=== PATIENT | female | born 1935 | race Caucasian/White ===

== ENCOUNTER 2017-07-04 23:59 | Emergency (ER) | payer OTHER ==
[2017-07-05 00:22] VITALS: BP 179/82; PULSE 85; TEMP 98.7; BMI 22.9
--- NOTE | 2017-07-05 01:00 | PDOC ---
History of Present Illness - General Chief Complaint: Psychiatric Stated Complaint: PANIC ATTACK Time Seen by Provider: 07/05/17 00:59 History Source: Patient, Family Exam Limitations: No Limitations - History of Present Illness Initial Comments: This is an 82 YOF with h/o anxiety, HTN, HLD, and hypothyroidism who presents for stated panic attack after witnessing her have a cardiopulmonary arrest at their home at about 10:30 pm tonight. The family explains that her was taken to [facility] ED and they do not know his current status. The patient herself has been crying, intermittently hyperventilating, anxious, and generally in distress since this happened. She denies any suicidal or homicidal ideation, and denies any injury. 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 Past History - Past Medical History Allergies/Adverse Reactions: Allergies Allergy/AdvReac Type Severity Reaction Status Date / Time No Known Allergies Allergy Verified 07/05/17 00:20 Home Medications: Ambulatory Orders Lorazepam [Ativan] 0.5 mg PO ONCE PRN #2 tablet MDD 2 07/05/17 - Suicide/Smoking/Psychosocial Hx Smoking History: Never smoked Have you smoked in the past 12 months: No Information on smoking cessation initiated: No Hx Alcohol Use: No Drug/Substance Use Hx: No *Physical Exam - Vital Signs Last Vital Signs Temp Pulse Resp BP Pulse Ox 98.7 F 85 14 179/82 98 07/05/17 00:20 07/05/17 00:20 07/05/17 00:20 07/05/17 00:20 07/05/17 00:20 *DC/Admit/Observation/Transfer Diagnosis at time of Disposition: Grief reaction - Discharge Dispostion Disposition: HOME Condition at time of disposition: Stable Admit: No - Prescriptions Prescriptions: Lorazepam [Ativan] 0.5 mg PO ONCE PRN #2 tablet MDD 2 PRN Reason: Anxiety - Referrals Referrals: Fareed Morales MD [Primary Care Provider] - - Patient Instructions Additional Instructions: You were seen in the ER for a grief reaction. We took your vital signs and you do have blood pressure that is on the high side, but you took blood pressure medication just prior to coming in to the ER. We offered you a small amount of medication for anxiety and you decided not to have any. We believe that you are safe to go home with your family tonight because you are nor having any abnormal thoughts, and you seem to have a very good support system. Please do follow up with your PCP in the next few days. Return to the ER for any new or worsening symptoms. - Post Discharge Activity
--- NOTE | 2017-07-05 01:23 | PDOC ---
Attending Attestation - Resident Resident Name: Lynda Hatch - ED Attending Attestation I have performed the following: I have examined & evaluated the patient, The case was reviewed & discussed with the resident, I agree w/resident's findings & plan, Exceptions are as noted - HPI HPI: 07/05/17 01:30 Pt had panic attack after observing her having a cardiac arrest. - Physicial Exam PE: 07/05/17 01:31 *Physical Exam General Appearance: Yes: Appropriately Dressed. No: Apparent Distress, Intoxicated HEENT: positive: EOMI, ROSALINE, Normal ENT Inspection, Normal Voice, TMs Normal, Pharynx Normal. negative: Pale Conjunctivae, Photophobia, Scleral Icterus (R), Scleral Icterus (L) Neck: positive: Trachea midline, Normal Thyroid, Supple. negative: Tender, Rigid, Carotid bruit, Stridor, Lymphadenopathy (R), Lymphadenopathy (L), Thyromegaly Respiratory/Chest: positive: Lungs Clear, Normal Breath Sounds. negative: Chest Tender, Respiratory Distress, Accessory Muscle Use, Labored Respiration, RES, Crackles, Rales, Rhonchi, Stridor, Wheezing, Dullness Cardiovascular: positive: Regular Rhythm, Regular Rate, S1, S2. negative: Edema , JVD, Murmur, Bradycardia, Tachycardia Vascular Pulses: Dorsalis-Pedis (R): 2+, Doralis-Pedis (L): 2+ Gastrointestinal/Abdominal: positive: Normal Bowel Sounds, Flat, Soft. negative : Tender, Organomegaly, Pulsatile Mass, Increased Bowel Sounds, Decreased BS, Distended, Guarding, Rebound, Hernia, Hepatomegaly, Spleenomegaly Lymphatic: negative: Adenopathy, Tenderness Musculoskeletal: positive: Normal Inspection. negative: CVA Tenderness, Decreased Range of Motion Extremity: positive: Normal Capillary Refill, Normal Inspection, Normal Range of Motion, Pelvis Stable. negative: Tender, Pedal Edema, Swelling, Erythema Integumentary: positive: Normal Color, Dry, Warm. negative: Cyanotic, Erythema , Jaundice, Rash Neurologic: positive: csr II-XII NML intact, Fully Oriented, Alert, Normal Mood/ Affect, Motor Strength 5/5. negative: EOM Palsy, Facial Droop, Sensory Deficit - Medical Decision Making 07/05/17 01:31 patient treated and released
== END 2017-07-05 01:53 | disposition home or self-care (01) ==
LOC: JER 23:59
DX: F43.29 Adjustment disorder with other symptoms (principal); I10 Essential (primary) hypertension; E11.9 Type 2 diabetes mellitus without complications; E03.9 Hypothyroidism, unspecified
CPT/HCPCS: 99281-25

== ENCOUNTER → 2020-10-06 | Day surgery (SDC) | payer OTHER | END | disposition home or self-care (01) | LOC: JRADIR 09:29 | PROVIDERS: ATTEND Internal Medicine Endocrinology, Diabetes & Metabolism | PROC: 0G9K3ZX Drainage of Thyroid Gland, Percutaneous Approach, Diagnostic (ICD-10-PCS; principal; 2020-10-06) | DX: E04.1 Nontoxic single thyroid nodule (principal) | CPT/HCPCS: 10005; 76942; 88173; 88305-TC ==

== ENCOUNTER → 2020-11-10 | Day surgery (SDC) | payer OTHER | END | disposition home or self-care (01) | LOC: JRADIR 09:31 | PROVIDERS: ATTEND Internal Medicine Endocrinology, Diabetes & Metabolism | PROC: 0G9H3ZX Drainage of Right Thyroid Gland Lobe, Percutaneous Approach, Diagnostic (ICD-10-PCS; principal; 2020-11-10) | PROC: BG44ZZZ Ultrasonography of Thyroid Gland (ICD-10-PCS; 2020-11-10) | DX: E04.1 Nontoxic single thyroid nodule (principal) | CPT/HCPCS: 10005; 76942; 88173; 88305-TC ==

== ENCOUNTER 2022-07-04 17:36 | Inpatient (IN) | payer OTHER ==
[2022-07-04 21:32] LABS: BASO % 0.5 % (0-2.0); HEMATOCRIT 33.6 % (32.4-45.2); HEMOGLOBIN 10.9 GM/dL (10.7-15.3); LYMPH % 13.8 % (8-40); MCH 28.3 pg (25.7-33.7); MCHC 32.5 g/dl (32.0-36.0); MEAN CELL VOLUME 86.9 fl (80-96); MEAN PLT VOLUME 9.4 fl (7.5-11.1); MONO % 4.6 % (3.8-10.2); NEUT % 81.1 % (42.8-82.8); PLATELET COUNT 205 10^3/uL (134-434); RBC 3.87 M/mm3 (3.60-5.2); RDW 13.9 % (11.6-15.6); WHITE BLOOD COUNT 8.3 K/mm3 (4.0-10.0)
[2022-07-04 21:59] LABS: CALCIUM 9.6 mg/dL (8.5-10.1)
[2022-07-04 22:00] LABS: ALBUMIN 4.1 g/dl (3.4-5.0); BLOOD UREA NITROGEN 62.3 mg/dL (7-18)
[2022-07-04 22:03] LABS: CREATININE 3.3 mg/dL (0.55-1.3)
[2022-07-04 22:04] LABS: BILIRUBIN,TOTAL 0.3 mg/dL (0.2-1); TOT PROT 7.7 g/dl (6.4-8.2)
[2022-07-04] MEDS ORDERED: SODIUM CHLORIDE 0.9% 500 ML INFUS.BAG IV ONE (22:47)
[2022-07-04] MEDS ORDERED: CALCIUM GLUC IN NACL, ISO-OSM 1 GM/50 ML BAG IVPB ONE ×2 (22:48→23:50)
[2022-07-05] MEDS ORDERED: SODIUM CHLORIDE 1,000 ML IV SCH (01:15)
[2022-07-05 01:36] LABS: ACTIVATED PTT 21.4 SECONDS (25.2-36.5)
[2022-07-05 01:54] LABS: INR 1.07 (0.83-1.09); PROTHROMBIN TIME (PATIENT) 12.3 SEC (9.7-13.0)
[2022-07-05] MEDS ORDERED: SODIUM ZIRCONIUM CYCLOSILICATE (LOKELMA) 5 GM PACKET PO ONE (04:00)
[2022-07-05] MEDS ORDERED: SODIUM ZIRCONIUM CYCLOSILICATE (LOKELMA) 5 GM PACKET ONE (04:28)
[2022-07-05 06:43] LABS: BASO % 0.6 % (0-2.0); EOS % 0.7 % (0-4.5); HEMOGLOBIN 10.1 GM/dL (10.7-15.3); MCH 28.3 pg (25.7-33.7); MCHC 32.4 g/dl (32.0-36.0); MEAN CELL VOLUME 87.3 fl (80-96); MEAN PLT VOLUME 9.6 fl (7.5-11.1); MONO % 7.1 % (3.8-10.2); NEUT % 70.6 % (42.8-82.8); PLATELET COUNT 166 10^3/uL (134-434); RBC 3.56 M/mm3 (3.60-5.2); RDW 13.6 % (11.6-15.6); WHITE BLOOD COUNT 6.3 K/mm3 (4.0-10.0)
[2022-07-05 06:58] LABS: CALCIUM 8.8 mg/dL (8.5-10.1)
[2022-07-05 06:59] LABS: ALBUMIN 3.3 g/dl (3.4-5.0); BLOOD UREA NITROGEN 52.5 mg/dL (7-18); MAGNESIUM 2.4 mg/dL (1.8-2.4)
[2022-07-05 07:02] LABS: CREATININE 2.5 mg/dL (0.55-1.3)
[2022-07-05 07:03] LABS: BILIRUBIN,TOTAL 0.3 mg/dL (0.2-1); TOT PROT 6.6 g/dl (6.4-8.2)
[2022-07-05] MEDS: SODIUM CHLORIDE 1,000 ML IV SCH (07:06)
[2022-07-05 08:40] LABS: EPI CELLS 9 /uL (0-25.1); HYALINE CASTS 0 /uL (0-3.1); URINE APPEARANCE TURBID; URINE BACTERIA 6924 /uL (0-1359); URINE BILIRUBIN NEGATIVE (NEGATIVE); URINE COLOR YELLOW; URINE GLUCOSE (UA) NEGATIVE (NEGATIVE); URINE KETONE NEGATIVE (NEGATIVE); URINE LEUK ESTERASE 3+ (NEGATIVE); URINE NITRITE NEGATIVE (NEGATIVE); URINE PROTEIN TRACE (NEGATIVE); URINE RBC 52 /uL (0-23.9); URINE UROBILINOGEN 0.2 mg/dL (0.2-1.0); URINE WBC 5573 /uL (0-25.8)
[2022-07-05] MEDS ORDERED: SODIUM ZIRCONIUM CYCLOSILICATE (LOKELMA) 5 GM PACKET PO SCH (10:00)
[2022-07-05] MEDS ORDERED: PANTOPRAZOLE 40 MG TABLET PO ONE (10:37)
[2022-07-05] MEDS: PANTOPRAZOLE 40 MG TABLET PO SCH (10:39)
[2022-07-05] MEDS: ONDANSETRON 4 MG TABLET PO SCH ×2 (13:04→21:47)
[2022-07-05 16:17] LABS: N-TERMINAL BNP 316.6 pg/ml (5-450)
[2022-07-06 03:05] VITALS: BMI 22.3
[2022-07-06] MEDS: ONDANSETRON 4 MG TABLET PO SCH ×4 (06:12→22:12)
[2022-07-06] MEDS: SODIUM CHLORIDE 1,000 ML IV SCH (06:12)
[2022-07-06] MEDS: PANTOPRAZOLE 40 MG TABLET PO SCH (10:01)
[2022-07-06] MEDS ORDERED: ALBUTEROL SO4 0.083% IH SOL 2.5 MG/3 ML VIAL.NEB. NEB SCH (11:00)
[2022-07-06] MEDS: CLOPIDOGREL BISULFATE 75 MG TABLET (FP) PO SCH (11:39)
[2022-07-06 13:10] LABS: BASO % 0.4 % (0-2.0); EOS % 0.8 % (0-4.5); HEMATOCRIT 34.6 % (32.4-45.2); HEMOGLOBIN 11.1 GM/dL (10.7-15.3); LYMPH % 20.8 % (8-40); MCH 28.2 pg (25.7-33.7); MCHC 32.1 g/dl (32.0-36.0); MEAN CELL VOLUME 87.8 fl (80-96); MEAN PLT VOLUME 9.8 fl (7.5-11.1); MONO % 8.4 % (3.8-10.2); NEUT % 69.6 % (42.8-82.8); PLATELET COUNT 201 10^3/uL (134-434); RBC 3.94 M/mm3 (3.60-5.2); RDW 14.1 % (11.6-15.6); WHITE BLOOD COUNT 6.8 K/mm3 (4.0-10.0)
[2022-07-06 13:31] LABS: CALCIUM 9.8 mg/dL (8.5-10.1)
[2022-07-06 13:32] LABS: ALBUMIN 3.8 g/dl (3.4-5.0); BLOOD UREA NITROGEN 38.7 mg/dL (7-18)
[2022-07-06 13:35] LABS: CREATININE 1.7 mg/dL (0.55-1.3)
[2022-07-06 13:36] LABS: BILIRUBIN,TOTAL 0.4 mg/dL (0.2-1); TOT PROT 7.5 g/dl (6.4-8.2)
[2022-07-07] MEDS ORDERED: MELATONIN 5 MG TABLETS PO PRN (01:04)
[2022-07-07] MEDS ORDERED: ACETAMINOPHEN 325 MG TABLET (FP) PO ONE (01:05)
[2022-07-07] MEDS: SODIUM CHLORIDE 1,000 ML IV SCH ×2 (06:23→17:22)
[2022-07-07] MEDS: ASPIRIN 81 MG CHEWABLE TABLETS PO SCH (10:17)
[2022-07-07] MEDS: CLOPIDOGREL BISULFATE 75 MG TABLET (FP) PO SCH (10:17)
[2022-07-07] MEDS: PANTOPRAZOLE 40 MG TABLET PO SCH (10:17)
[2022-07-07] MEDS: ATORVASTATIN CA 40 MG TABLET (FP) PO SCH (10:17)
[2022-07-07] MEDS: amLODIPine BESYLATE 5 MG TABLET (FP) PO SCH (10:18)
[2022-07-07] MEDS: ONDANSETRON 4 MG TABLET PO SCH ×2 (14:00→21:32)
[2022-07-08] MEDS: ONDANSETRON 4 MG TABLET PO SCH ×3 (06:30→23:20)
[2022-07-08] MEDS: SODIUM CHLORIDE 1,000 ML IV SCH ×2 (06:30→22:17)
[2022-07-08 09:09] VITALS: RESP 18
[2022-07-08] MEDS: ATORVASTATIN CA 40 MG TABLET (FP) PO SCH (09:10)
[2022-07-08] MEDS: amLODIPine BESYLATE 5 MG TABLET (FP) PO SCH (09:11)
[2022-07-08] MEDS: PANTOPRAZOLE 40 MG TABLET PO SCH (09:12)
[2022-07-08] MEDS: CLOPIDOGREL BISULFATE 75 MG TABLET (FP) PO SCH (09:14)
[2022-07-08] MEDS: ASPIRIN 81 MG CHEWABLE TABLETS PO SCH (09:14)
[2022-07-08 17:05] LABS: BASO % 0.6 % (0-2.0); EOS % 3.5 % (0-4.5); HEMATOCRIT 33.6 % (32.4-45.2); HEMOGLOBIN 10.9 GM/dL (10.7-15.3); LYMPH % 22.1 % (8-40); MCH 28.6 pg (25.7-33.7); MCHC 32.4 g/dl (32.0-36.0); MEAN CELL VOLUME 88.3 fl (80-96); MEAN PLT VOLUME 9.2 fl (7.5-11.1); MONO % 10.1 % (3.8-10.2); NEUT % 63.7 % (42.8-82.8); PLATELET COUNT 175 10^3/uL (134-434); RBC 3.81 M/mm3 (3.60-5.2); RDW 14.1 % (11.6-15.6); WHITE BLOOD COUNT 6.5 K/mm3 (4.0-10.0)
[2022-07-08 17:26] LABS: ALBUMIN 3.3 g/dl (3.4-5.0); BLOOD UREA NITROGEN 29.2 mg/dL (7-18); CALCIUM 8.8 mg/dL (8.5-10.1)
[2022-07-08 17:29] LABS: CREATININE 1.5 mg/dL (0.55-1.3)
[2022-07-08 17:31] LABS: BILIRUBIN,TOTAL 0.3 mg/dL (0.2-1); TOT PROT 6.8 g/dl (6.4-8.2)
[2022-07-09] MEDS ORDERED: SODIUM CHLORIDE 1,000 ML IV SCH (00:38)
[2022-07-09] MEDS ORDERED: ALBUTEROL SO4 0.083% IH SOL 2.5 MG/3 ML VIAL.NEB. NEB PRN (00:38)
[2022-07-09] MEDS ORDERED: MELATONIN 5 MG TABLETS PO PRN (00:38)
[2022-07-09] MEDS: PATIENT'S OWN MEDICATION (NON-FORMULARY) (Vortioxetine Hydrobromide [Trintellix] 5 MG Tabl PO SCH (06:14)
[2022-07-09] MEDS: ONDANSETRON 4 MG TABLET PO SCH ×2 (07:28→14:12)
[2022-07-09 08:00] VITALS: BP 120/59; PULSE 63; TEMP 99.4
[2022-07-09] MEDS ORDERED: ASPIRIN 81 MG CHEWABLE TABLETS PO SCH (10:00)
[2022-07-09] MEDS ORDERED: PATIENT'S OWN MEDICATION (NON-FORMULARY) (Vortioxetine Hydrobromide [Trintellix] 10 MG) PO SCH (10:00)
[2022-07-09] MEDS ORDERED: PANTOPRAZOLE 40 MG TABLET PO SCH (10:00)
[2022-07-09] MEDS ORDERED: CLOPIDOGREL BISULFATE 75 MG TABLET (FP) PO SCH (10:00)
[2022-07-09] MEDS ORDERED: amLODIPine BESYLATE 5 MG TABLET (FP) PO SCH (10:00)
[2022-07-09 13:14] LABS: CALCIUM 8.6 mg/dL (8.5-10.1)
[2022-07-09 13:15] LABS: BLOOD UREA NITROGEN 25.8 mg/dL (7-18)
[2022-07-09 13:18] LABS: CREATININE 1.2 mg/dL (0.55-1.3)
[2022-07-09] MEDS ORDERED: ATORVASTATIN CA 40 MG TABLET (FP) PO SCH (22:00)
== END 2022-07-09 15:21 | disposition home or self-care (01) | DRG 684 ==
LOC: JER 17:36 → JERBED 07-05 00:40 → J4W 07-05 20:00 → J4S 07-07 11:32 → J8W 07-08 19:01
PROVIDERS: ADMIT Internal Medicine; ATTEND Family Medicine
DX: N17.9 Acute kidney failure, unspecified (principal); I25.10 Atherosclerotic heart disease of native coronary artery without angina pectoris; E78.5 Hyperlipidemia, unspecified; E87.5 Hyperkalemia; R10.13 Epigastric pain; I35.0 Nonrheumatic aortic (valve) stenosis; D64.9 Anemia, unspecified; I25.2 Old myocardial infarction; R32 Unspecified urinary incontinence; N28.1 Cyst of kidney, acquired; E04.1 Nontoxic single thyroid nodule; R82.71 Bacteriuria; R41.0 Disorientation, unspecified; I12.9 Hypertensive chronic kidney disease with stage 1 through stage 4 chronic kidney disease, or unspecified chronic kidney disease; N18.9 Chronic kidney disease, unspecified; Z95.5 Presence of coronary angioplasty implant and graft; Z22.39 Carrier of other specified bacterial diseases
CPT/HCPCS: 0241U-QW; 36415; 70450-TC; 71045-TC-FY; 74176-TC; 76775-TC; 80048; 80053; 80061; 81003; 82550; 82553; 82607; 82728; 83036; 83540; 83550; 83690; 83735; 83880; 84443; 84484; 85025; 85610; 85730; 86780; 87086; 87186; 93005; 93010; 97116-GP; 97161-GP; 99285-25

== ENCOUNTER 2022-12-12 21:17 | Observation (INO) | payer OTHER ==
[2022-12-12 21:23] VITALS: BMI 24.4
[2022-12-12 22:19] LABS: BASO % 0.3 % (0-2.0); EOS % 1.4 % (0-4.5); HEMATOCRIT 36.6 % (32.4-45.2); HEMOGLOBIN 11.9 GM/dL (10.7-15.3); MCH 27.2 pg (25.7-33.7); MCHC 32.7 g/dl (32.0-36.0); MEAN CELL VOLUME 83.4 fl (80-96); MEAN PLT VOLUME 8.8 fl (7.5-11.1); MONO % 8.8 % (3.8-10.2); NEUT % 65.5 % (42.8-82.8); PLATELET COUNT 190 10^3/uL (134-434); RBC 4.38 M/mm3 (3.60-5.2); RDW 15.6 % (11.6-15.6); WHITE BLOOD COUNT 7.2 K/mm3 (4.0-10.0)
[2022-12-12 22:30] LABS: INR 1.08 (0.83-1.09); PROTHROMBIN TIME (PATIENT) 12.5 SEC (9.7-13.0)
[2022-12-12 22:33] LABS: ACTIVATED PTT 32.7 SECONDS (25.2-36.5)
[2022-12-12 22:40] LABS: POTASSIUM 4.3 mmol/L (3.5-5.1)
[2022-12-12 22:42] LABS: EPI CELLS 10 /uL (0-25.1); HYALINE CASTS 0 /uL (0-3.1); URINE APPEARANCE CLEAR; URINE BACTERIA >9,000 /uL (0-1359); URINE BILIRUBIN NEGATIVE (NEGATIVE); URINE COLOR YELLOW; URINE GLUCOSE (UA) NEGATIVE (NEGATIVE); URINE KETONE NEGATIVE (NEGATIVE); URINE LEUK ESTERASE 3+ (NEGATIVE); URINE NITRITE POSITIVE (NEGATIVE); URINE PROTEIN NEGATIVE (NEGATIVE); URINE RBC 4 /uL (0-23.9); URINE UROBILINOGEN 0.2 mg/dL (0.2-1.0); URINE WBC 187 /uL (0-25.8)
[2022-12-12 22:42] LABS: CALCIUM 8.8 mg/dL (8.5-10.1)
[2022-12-12 22:44] LABS: ALBUMIN 3.2 g/dl (3.4-5.0); BLOOD UREA NITROGEN 26.2 mg/dL (7-18); MAGNESIUM 2.6 mg/dL (1.8-2.4)
[2022-12-12 22:47] LABS: BILIRUBIN,TOTAL 0.2 mg/dL (0.2-1); TOT PROT 6.8 g/dl (6.4-8.2)
[2022-12-12] MEDS ORDERED: PIPERACILLIN/TAZOB 4.5 GM 4.5 GM in DEXTROSE 5%-WATER 100 ML IVPB ONE (22:50)
[2022-12-13] MEDS ORDERED: PIPERACILLIN/TAZOB 4.5 GM 4.5 GM/100 ML BAG IVPB ONE (00:23)
[2022-12-13] MEDS: SODIUM CHLORIDE 1,000 ML IV SCH (00:31)
[2022-12-13 07:00] LABS: POTASSIUM 4.4 mmol/L (3.5-5.1)
[2022-12-13 07:02] LABS: BLOOD UREA NITROGEN 21.6 mg/dL (7-18)
[2022-12-13 07:06] LABS: CREATININE 0.9 mg/dL (0.55-1.3); PHOSPHOROUS 2.4 mg/dL (2.5-4.9)
[2022-12-13] MEDS ORDERED: NAPH,MB-DB/K PH,MBDB POWDER PACKET PO ONE (07:30)
[2022-12-13] MEDS ORDERED: NAPH,MB-DB/K PH,MBDB POWDER PACKET ONE (08:14)
[2022-12-13] MEDS ORDERED: LISINOPRIL 10 MG TABLET PO SCH (10:00)
[2022-12-13] MEDS: ASPIRIN 81 MG CHEWABLE TABLETS PO SCH (11:01)
[2022-12-13] MEDS: FAMOTIDINE 20 MG TABLET PO SCH (11:01)
[2022-12-13] MEDS: FOLIC ACID 1 MG TABLET (FP) PO SCH (11:02)
[2022-12-13] MEDS: amLODIPine BESYLATE 5 MG TABLET (FP) PO SCH (11:02)
[2022-12-13 12:00] LABS: BASO % 0.3 % (0-2.0); EOS % 0.8 % (0-4.5); HEMATOCRIT 36.1 % (32.4-45.2); HEMOGLOBIN 11.7 GM/dL (10.7-15.3); LYMPH % 16.4 % (8-40); MCH 27.3 pg (25.7-33.7); MCHC 32.3 g/dl (32.0-36.0); MEAN CELL VOLUME 84.4 fl (80-96); MEAN PLT VOLUME 9.7 fl (7.5-11.1); MONO % 5.8 % (3.8-10.2); NEUT % 76.7 % (42.8-82.8); PLATELET COUNT 217 10^3/uL (134-434); RBC 4.28 M/mm3 (3.60-5.2); RDW 15.4 % (11.6-15.6); WHITE BLOOD COUNT 9.3 K/mm3 (4.0-10.0)
[2022-12-13] MEDS: ENOXAPARIN NA (PORCINE) 60 MG/0.6 ML DISP.SYRIN SQ SCH ×2 (12:16→23:04)
[2022-12-13 12:53] LABS: N-TERMINAL BNP 547.9 pg/ml (5-450)
[2022-12-13] MEDS: ERTAPENEM SODIUM 0.5 GM in SODIUM CHLORIDE 50 ML IVPB SCH (17:39)
[2022-12-13] MEDS: ATORVASTATIN CA 80 MG TABLET (FP) PO SCH (22:04)
[2022-12-14] MEDS: SODIUM CHLORIDE 1,000 ML IV SCH (00:49)
[2022-12-14] MEDS: ACETAMINOPHEN 325 MG TABLET (FP) PO PRN ×2 (01:01→21:10)
[2022-12-14] MEDS: ASPIRIN 81 MG CHEWABLE TABLETS PO SCH (10:18)
[2022-12-14] MEDS: amLODIPine BESYLATE 5 MG TABLET (FP) PO SCH (10:18)
[2022-12-14] MEDS: FOLIC ACID 1 MG TABLET (FP) PO SCH (10:18)
[2022-12-14] MEDS: FAMOTIDINE 20 MG TABLET PO SCH (10:20)
[2022-12-14] MEDS: ERTAPENEM SODIUM 0.5 GM in SODIUM CHLORIDE 50 ML IVPB SCH (10:21)
[2022-12-14] MEDS: ENOXAPARIN NA (PORCINE) 60 MG/0.6 ML DISP.SYRIN SQ SCH ×2 (12:54→23:00)
[2022-12-14] MEDS: ATORVASTATIN CA 80 MG TABLET (FP) PO SCH (21:10)
[2022-12-15] MEDS: SODIUM CHLORIDE 1,000 ML IV SCH ×3 (02:11→23:30)
[2022-12-15 10:33] LABS: ARTERIAL BLD GAS O2 SATURATION 97.5 % (95-98); ARTERIAL BLOOD GAS BASE EXCESS -0.3 mmol/L (-2-2); ARTERIAL BLOOD GAS pH 7.432 (7.350-7.450)
[2022-12-15 10:35] LABS: ALLENS TEST POSITIVE
[2022-12-15] MEDS: FOLIC ACID 1 MG TABLET (FP) PO SCH (10:38)
[2022-12-15] MEDS: ERTAPENEM SODIUM 0.5 GM in SODIUM CHLORIDE 50 ML IVPB SCH (10:38)
[2022-12-15] MEDS: FAMOTIDINE 20 MG TABLET PO SCH (10:38)
[2022-12-15] MEDS: amLODIPine BESYLATE 5 MG TABLET (FP) PO SCH (10:38)
[2022-12-15] MEDS: ASPIRIN 81 MG CHEWABLE TABLETS PO SCH (10:38)
[2022-12-15] MEDS: ENOXAPARIN NA (PORCINE) 60 MG/0.6 ML DISP.SYRIN SQ SCH ×2 (12:05→23:22)
[2022-12-15] MEDS: ATORVASTATIN CA 80 MG TABLET (FP) PO SCH (21:42)
[2022-12-15] MEDS: ACETAMINOPHEN 325 MG TABLET (FP) PO PRN (21:42)
[2022-12-15] MEDS ORDERED: MELATONIN 5 MG TABLETS PO ONE (23:58)
[2022-12-16 07:45] LABS: HEMATOCRIT 33.2 % (32.4-45.2); MCH 27.6 pg (25.7-33.7); MCHC 33.1 g/dl (32.0-36.0); MEAN CELL VOLUME 83.4 fl (80-96); MEAN PLT VOLUME 9.5 fl (7.5-11.1); PLATELET COUNT 180 10^3/uL (134-434); RBC 3.97 M/mm3 (3.60-5.2); WHITE BLOOD COUNT 6.7 K/mm3 (4.0-10.0)
[2022-12-16] MEDS: FOLIC ACID 1 MG TABLET (FP) PO SCH (10:05)
[2022-12-16] MEDS: ERTAPENEM SODIUM 0.5 GM in SODIUM CHLORIDE 50 ML IVPB SCH (10:05)
[2022-12-16] MEDS: FAMOTIDINE 20 MG TABLET PO SCH (10:05)
[2022-12-16] MEDS: ASPIRIN 81 MG CHEWABLE TABLETS PO SCH (10:05)
[2022-12-16] MEDS: amLODIPine BESYLATE 5 MG TABLET (FP) PO SCH (10:05)
[2022-12-16] MEDS: ENOXAPARIN NA (PORCINE) 60 MG/0.6 ML DISP.SYRIN SQ SCH ×2 (12:02→23:49)
[2022-12-16 12:17] LABS: BLOOD UREA NITROGEN 24.4 mg/dL (7-18); CALCIUM 8.5 mg/dL (8.5-10.1); CREATININE 0.8 mg/dL (0.55-1.3); POTASSIUM 4.4 mmol/L (3.5-5.1)
[2022-12-16] MEDS: ATORVASTATIN CA 80 MG TABLET (FP) PO SCH (21:35)
[2022-12-16] MEDS: SODIUM CHLORIDE 1,000 ML IV SCH (23:49)
[2022-12-17 06:10] VITALS: RESP 18
[2022-12-17] MEDS ORDERED: ENOXAPARIN NA (PORCINE) 30 MG/0.3 ML DISP.SYRIN SQ SCH (10:00)
[2022-12-17] MEDS: FAMOTIDINE 20 MG TABLET PO SCH (10:14)
[2022-12-17] MEDS: ASPIRIN 81 MG CHEWABLE TABLETS PO SCH (10:14)
[2022-12-17] MEDS: FOLIC ACID 1 MG TABLET (FP) PO SCH (10:15)
[2022-12-17] MEDS: amLODIPine BESYLATE 5 MG TABLET (FP) PO SCH (10:15)
[2022-12-17] MEDS: ERTAPENEM SODIUM 0.5 GM in SODIUM CHLORIDE 50 ML IVPB SCH (11:46)
[2022-12-17 15:17] VITALS: BP 137/50; PULSE 71; TEMP 97.1
== END 2022-12-17 20:29 | disposition home or self-care (01) ==
LOC: JER 21:17 → JERBED 23:20 → J4S 12-13 09:43
PROVIDERS: ADMIT Internal Medicine; ATTEND Family Medicine
PROC: 3E023GC Introduction of Other Therapeutic Substance into Muscle, Percutaneous Approach (ICD-10-PCS; principal; 2022-12-12)
PROC: 3E03329 Introduction of Other Anti-infective into Peripheral Vein, Percutaneous Approach (ICD-10-PCS; 2022-12-12)
DX: N39.0 Urinary tract infection, site not specified (principal); I25.10 Atherosclerotic heart disease of native coronary artery without angina pectoris; R79.89 Other specified abnormal findings of blood chemistry; I10 Essential (primary) hypertension; E78.5 Hyperlipidemia, unspecified; Z88.8 Allergy status to other drugs, medicaments and biological substances
CPT/HCPCS: 36415; 36600; 70450-TC; 71045-TC-FY; 80048; 80053; 80061; 81003; 82550; 82553; 82803; 83036; 83735; 83880; 84100; 84439; 84443; 84479; 84484; 85025; 85027; 85610; 85730; 87086; 87186; 93005; 93010; 93306-TC; 96365; 96366; 96372; 99285-25; G0378